=== PATIENT | female | born 1970 | race Caucasian/White ===

== ENCOUNTER → 2016-11-12 | Outpatient (CLI) | payer OTHER ==
[~2016-11-12] MED LIST: DOCU1CAP39 PO; FOLI1TAB4 PO; IBUP-232 PO; IBUP200C PO; MULTTAB67 PO; OXYC1TAB63 PO; VITA10002 PO
[2016-11-12 12:27] LABS: HEMATOCRIT 35.4 % (35.0-46.0); MEAN CORPUSCULAR HGB CONC 34.9 % (32.0-36.0); PLATELET COUNT 262 TH/MM3 (150-450); RED BLOOD COUNT 4.12 MIL/MM3 (4.00-5.30); REVIEW FLAG FINAL; WHITE BLOOD COUNT 6.8 TH/MM3 (4.0-11.0)
[2016-11-12 12:30] LABS: BLOOD, URINE NEG (NEG); GLUCOSE,URINE NEG (NEG); KETONE, URINE NEG (NEG); MUCUS URINE FEW /lpf (OCC); NITRITE,URINE NEG (NEG); URINE COLOR COLORLESS (YELLW/STRAW)
[2016-11-12 12:51] LABS: BICARBONATE 27.9 MEQ/L (21.0-32.0); POTASSIUM 3.7 MEQ/L (3.5-5.1)
== END ==
LOC: CPRE 10:21
PROVIDERS: ATTEND Obstetrics & Gynecology
DX: Z01.812 Encounter for preprocedural laboratory examination (principal); D06.9 Carcinoma in situ of cervix, unspecified; R87.613 High grade squamous intraepithelial lesion on cytologic smear of cervix (HGSIL)
CPT/HCPCS: 36415; 80048; 81001; 84703; 85027

== ENCOUNTER 2016-11-18 06:06 | Observation (INO) | payer OTHER ==
[~2016-11-18] VITALS: Ht 162.6 cm; Wt 88.5 kg
[~2016-11-18 06:06] MED LIST changes: -DOCU1CAP39 PO; -IBUP-232 PO; -OXYC1TAB63 PO
[2016-11-18] MEDS ORDERED: ceFAZolin 2 GM PREMIX 50 ML ONE (06:30)
[2016-11-18 06:42] VITALS: BP 101/69; PULSE 69; RESP 16; TEMP 98.6; O2SAT 97
[2016-11-18] MEDS ORDERED: METOPROLOL TARTRATE 25 MG TAB PO PRN (06:45)
[2016-11-18] MEDS ORDERED: LACTATED RINGER'S 1000 ML IV SCH (06:45)
[2016-11-18] MEDS ORDERED: SODIUM CHLORID 0.9% 500 ML IV SCH (06:45)
[2016-11-18] MEDS ORDERED: ceFAZolin 2 GM PREMIX 50 ML IV SCH (06:45)
[2016-11-18] MEDS ORDERED: INSULIN HUMAN REGULAR 1,000 UNITS/10 ML VIAL SQ PRN (06:45)
[2016-11-18] MEDS ORDERED: VASOPRESSIN INJ 20 UNITS/ML VIAL ONE (07:19)
[2016-11-18] MEDS ORDERED: ESTROGENS CONJUGATED VAG CREA 15 APPL/30 GM TUBE ONE (07:19)
[2016-11-18] MEDS ORDERED: BUPIVACAINE/EPINEPHRINE 0.5% PF 30 ML VIAL ONE (07:19)
[2016-11-18] MEDS ORDERED: DO NOT ADM ANY ANTICOAGULANT DRUGS XX PRN (07:30)
[2016-11-18] MEDS ORDERED: MIDAZOLAM HCL 2 MG/2 ML VIAL ONE (07:47)
[2016-11-18] MEDS ORDERED: FAMOTIDINE 20 MG/2 ML VIAL ONE (07:47)
[2016-11-18] MEDS ORDERED: ACETAMINOPHEN 1000 MG/100 ML VIAL IV ONE (07:47)
[2016-11-18] MEDS ORDERED: fentaNYL CITRATE 250 MCG/5 ML AMP ONE (07:48)
[2016-11-18] MEDS ORDERED: HYDROmorphone HCL PF 2 MG/ML VIAL ONE (07:48)
[2016-11-18] MEDS ORDERED: NALOXONE HCL 0.4 MG/ML AMP IV PRN (09:15)
[2016-11-18] MEDS ORDERED: diphenhydrAMINE HCL 50 MG/ML VIAL IV PRN (09:15)
[2016-11-18] MEDS ORDERED: MORPHINE SULFATE 30 MG/30 ML PCA IV SCH (09:15)
[2016-11-18] MEDS ORDERED: DOCUSATE SODIUM 100 MG CAP PO SCH (09:15)
[2016-11-18] MEDS ORDERED: ZOLPIDEM TARTRATE 5 MG TAB PO PRN (09:15)
[2016-11-18] MEDS ORDERED: ONDANSETRON HCL 4 MG/2 ML VIAL IVP PRN (09:15)
[2016-11-18] MEDS ORDERED: SODIUM CHLORIDE 0.9% FLUSH 5 ML FLUSH FLUSH PRN (09:15)
[2016-11-18] MEDS: LACTATED RINGER'S 1000 ML INJ 1,000 ML IV SCH ×2 (09:32→15:49)
[2016-11-18] MEDS ORDERED: GLYCOPYRROLATE 0.2 MG/ML VIAL ONE (09:39)
[2016-11-18] MEDS ORDERED: IBUPROFEN 600 MG TAB PO PRN (10:00)
[2016-11-18] MEDS ORDERED: GLYCOPYRROLATE 0.2 MG/ML VIAL IV ONE (10:00)
[2016-11-18 11:45] VITALS: BP 98/58; PULSE 51; RESP 16; TEMP 96.2; O2SAT 99
[2016-11-18] MEDS ORDERED: PROPOFOL 200 MG/20 ML AMP IV ONE (12:00)
[2016-11-18] MEDS ORDERED: LACTATED RINGER'S 1000 ML INJ 1,000 ML IV ONE (12:00)
[2016-11-18] MEDS ORDERED: DEXAMETHASONE SOD PHOS 4 MG/ML VIAL IV ONE (12:00)
[2016-11-18] MEDS ORDERED: NEOSTIGMINE 3 MG/3 ML SYR IV ONE (12:00)
[2016-11-18] MEDS ORDERED: ONDANSETRON HCL 4 MG/2 ML VIAL IV PUSH ONE (12:00)
[2016-11-18 15:43] VITALS: O2SAT 98
[2016-11-18] MEDS: PCA - TOTAL MG MORPHINE DELIVERED PER SHIFT SCH ×2 (15:53→21:33)
[2016-11-18 16:00] VITALS: BP 92/57; PULSE 45; RESP 16; TEMP 96.4; O2SAT 98
[2016-11-18 20:00] VITALS: BP 95/62; PULSE 54; RESP 18; TEMP 96.7; O2SAT 99
[2016-11-18] MEDS: DOCUSATE SODIUM 100 MG CAP PO SCH (21:33)
[2016-11-18] MEDS: SODIUM CHLORIDE 0.9% FLUSH 5 ML FLUSH FLUSH SCH (21:33)
--- NOTE | 2016-11-18 22:02 | MP ---
cc: DARLENE CHAVEZ DATE OF SURGERY 11/18/16 PREOPERATIVE DIAGNOSIS Adenocarcinoma in situ of the cervix, high grade squamous intraepithelial lesion. POSTOPERATIVE DIAGNOSIS Adenocarcinoma in situ of the cervix, high grade squamous intraepithelial lesion. PROCEDURE 1. Examination under anesthesia, 2. IUD removal 3. Vaginal hysterectomy. SURGEON Dr. Calderon Chavez AUDIO VISUAL COORDINATOR Charity Munguia ANESTHESIA General endotracheal anesthesia, Dr. Ibarra FLUIDS 1200 mL crystalloid ESTIMATED BLOOD LOSS 300 mL URINE OUTPUT 150 mL clear yellow at the end of the procedure. FINDINGS The [place] IUD was removed intact. On examination under anesthesia, the uterus was approximately 6-8 weeks in size. No adnexal masses were palpable. PROCEDURE IN DETAIL The patient was taken to the operating room where general anesthesia was found to be adequate. She was then prepped and draped in normal sterile fashion in the dorsal lithotomy position. After the IUD was removed, the Stone catheter was inserted into the urinary bladder using sterile technique. A weighted speculum was placed in the vagina. A single-tooth tenaculum applied to the anterior lip of the cervix and local anesthetic was then infiltrated in the cervicovaginal reflection circumferentially around the cervix. An incision was then made with the Bovie and this reflection around the cervix. The bladder was then gently dissected off of the anterior surface of the cervix and the uterus using the curved Trimble scissors. The anterior peritoneum was entered without difficulty. The posterior peritoneum was entered without difficulty with the curved Trimble scissors. The uterosacral ligaments were then clamped bilaterally with [place] clamps, transected and suture ligated. The uterine arteries were clamped bilaterally with [place] clamps, transected and suture ligated. The remaining broad ligaments and fallopian tubes were clamped bilaterally with [place] clamps, transected and suture ligated. The proximal ends of the fallopian tube sutures were then tied together. A Toth culdoplasty was performed through the bilateral uterosacral ligaments in the posterior peritoneum. Hemostasis was noted from the pedicles. The vaginal cuff was then closed in a running fashion with 0 Vicryl. Again hemostasis was assured. The vagina was packed. The patient was awakened from anesthesia and transferred to recovery room in stable condition. The pathology was uterus and cervix. The sponge, lap, needle and instrument counts were correct. MD HANDY Waddell /9:27 AM /9:51 PM
[2016-11-19] VITALS: BP 105/63; PULSE 52; RESP 18; TEMP 97; O2SAT 97
[2016-11-19] MEDS: LACTATED RINGER'S 1000 ML INJ 1,000 ML IV SCH (00:30)
[2016-11-19 04:00] VITALS: BP 95/55; PULSE 55; RESP 17; TEMP 96.9; O2SAT 96
[2016-11-19] MEDS: PCA - TOTAL MG MORPHINE DELIVERED PER SHIFT SCH (06:23)
[2016-11-19] MEDS ORDERED: oxyCODONE/ACETAMINOPHEN 5 MG/325 MG TAB PO PRN (07:00)
--- NOTE | 2016-11-19 07:47 | HHI.PR ---
Subjective Remarks Doing well, pain is well controlled, eating well. Objective Vital Signs Vital Signs Date Time Temp Pulse Resp B/P Pulse Ox O2 Delivery O2 Flow Rate FiO2 11/19/16 06:23 19 11/19/16 04:00 96.9 55 17 95/55 96 11/19/16 00:00 97.0 52 18 105/63 97 11/18/16 21:33 16 11/18/16 20:00 96.7 54 18 95/62 99 11/18/16 16:00 96.4 45 16 92/57 98 11/18/16 15:53 16 11/18/16 15:43 98 Nasal Cannula 2.00 11/18/16 11:45 96.2 51 16 98/58 99 11/18/16 11:23 97.5 60 16 115/77 99 Nasal Cannula 3 11/18/16 11:00 70 17 107/76 99 Nasal Cannula 3 11/18/16 10:30 53 15 109/76 99 Nasal Cannula 3 11/18/16 10:15 52 15 117/77 99 Nasal Cannula 3 11/18/16 10:00 57 16 118/76 99 Nasal Cannula 3 11/18/16 09:45 58 14 120/79 99 Nasal Cannula 3 11/18/16 09:33 15 11/18/16 09:30 55 14 111/67 99 Nasal Cannula 3 11/18/16 09:19 97.5 69 14 122/71 99 Nasal Cannula 3 I/O 11/18/16 11/18/16 11/18/16 11/19/16 11/19/16 11/19/16 07:00 15:00 23:00 07:00 15:00 23:00 Intake Total 1815 ml 720 ml 2839 ml Output Total 650 ml 450 ml 630 ml Balance 1165 ml 270 ml 2209 ml Intake Oral 240 ml 720 ml 240 ml IV Total 375 ml 2599 ml Other 1200 ml Output Urine Total 350 ml 450 ml 630 ml Estimated Blood Loss 300 ml # Sanitary Pads 1 Pads 1 Pads Objective Remarks Chest is clear, regular rate and rhythm. Abdomen is soft and non-distended. vaginal packing removed, clean and dry. Ext no CCE. A/P Assessment and Plan Post Op Day 1 Doing well Home today and return to office in two weeks. Shabana Gaxiola MD Nov 19, 2016 07:47
[2016-11-19] MEDS ORDERED: OXYC1TAB63 PO (07:49)
[2016-11-19] MEDS ORDERED: IBUP-232 PO (07:49)
[2016-11-19] MEDS ORDERED: DOCU1CAP39 PO (07:49)
--- NOTE | 2016-11-19 07:50 | HHI.DCPOC ---
Discharge Care Plan Your Health Problems Are: Pelvic pain Report Symptoms to Your Doctor -Temperate above 100.5 degrees -Redness, of incision or excessive or foul smelling drainage -Unusual pain or calf pain -Increased vaginal bleeding -Painful or difficulty urinating -Feelings of extreme sadness or anxiety after 2 weeks Goals to Promote Your Health * To prevent worsening of your condition and complications * To maintain your health at the optimal level Directions to Meet Your Goals Take your medications as prescribed Follow your dietary instruction Follow activity as directed Ensure plenty of rest for recovery Drink fluids for hydration Keep your appointments as scheduled Take your immunizations and boosters as scheduled If your symptoms worsen call your PCP, if no PCP go to Urgent Care Center or Emergency Room Smoking is Dangerous to Your Health. Avoid second hand smoke Call the 24-hour crisis hotline for domestic abuse at Shabana Gaxiola MD Nov 19, 2016 07:50
[2016-11-19 08:15] VITALS: TEMP 97.5; O2SAT 96
[2016-11-19 08:34] LABS: AUTOMATED NEUTROPHIL # 6.6 TH/MM3 (1.8-7.7); BASOPHIL # 0.1 TH/MM3 (0-0.2); BASOPHIL % 0.7 % (0.0-2.0); EOSINOPHIL % 0.4 % (0.0-4.0); HEMATOCRIT 26.8 % (35.0-46.0); HEMO FLAGS DIFF FINAL; LYMPH % 23.6 % (9.0-44.0); LYMPHOCYTE # 2.2 TH/MM3 (1.0-4.8); MEAN CELL VOLUME 86.8 FL (80.0-100.0); MEAN CORPUSCULAR HEMOGLOBIN 30.3 PG (27.0-34.0); MEAN CORPUSCULAR HGB CONC 34.9 % (32.0-36.0); MONO % 5.1 % (0.0-8.0); NEUT % 70.2 % (16.0-70.0); PLATELET COUNT 206 TH/MM3 (150-450); RED BLOOD COUNT 3.09 MIL/MM3 (4.00-5.30); RED CELL DISTRIBUTION WIDTH 14.1 % (11.6-17.2); WHITE BLOOD COUNT 9.4 TH/MM3 (4.0-11.0)
[2016-11-19] MEDS: SODIUM CHLORIDE 0.9% FLUSH 5 ML FLUSH FLUSH SCH (09:00)
[2016-11-19] MEDS: DOCUSATE SODIUM 100 MG CAP PO SCH (09:00)
[2016-11-19 09:55] VITALS: BP 93/57; PULSE 59; RESP 16
[2016-11-19] MEDS ORDERED: INFLUENZA VIRUS VACCINE (QUADRIVALENT) 0.5 ML SYR IM ONE (10:00)
== END 2016-11-19 10:55 | disposition home or self-care (01) ==
LOC: HSDC 06:06 → EDUNIT# 08:00 → HSDI 09:13 → HOCA 11:30
PROVIDERS: ADMIT Obstetrics & Gynecology; ATTEND Obstetrics & Gynecology
DX: D06.9 Carcinoma in situ of cervix, unspecified (principal); Z23 Encounter for immunization
CPT/HCPCS: 00940; 58260; 58301; 82565; 85025; 86850; 86900; 86901; 88309; 94150; G0378; J0131; J0690; J1100; J2250; J2270; J2405; J2710; J3010; J7120; Q2038; 88307; 90686; J1170